=== PATIENT | male | born 1995 | race African-American/Black ===

== ENCOUNTER 2020-12-27 12:41 | Emergency (ER) | payer OTHER, SELFPAY ==
--- NOTE | 2020-12-27 12:52 | ED.URI ---
HPI - URI/Sore Throat General Chief Complaint: Upper Respiratory Infection Stated Complaint: achy headache sinus lathargic Time Seen by Provider: 12/27/20 12:52 Source: patient Mode of arrival: ambulatory Limitations: no limitations History of Present Illness HPI Narrative: 25-year-old male presents to the [facility] requesting a Covid test due to symptoms of sinus congestion, generalized fatigue and headache. Patient reports symptoms x2 to 2 days. Unsure if he has been exposed. No treatment prior to arrival Related Data Home Medications Medication Instructions Recorded Confirmed No Home Medications 08/23/19 08/23/19 Allergies Allergy/AdvReac Type Severity Reaction Status Date / Time No Known Allergies Allergy Verified 08/23/19 11:43 Review of Systems Review of Systems: Narrative: CONSTITUTIONAL: Denies fever. Reports chills and sweats. Generalized fatigue EYES: Denies visual changes, redness, or discharge. ENT: Denies congestion, sore throat, or otalgia. Reports rhinorrhea CARDIOVASCULAR: Denies chest pain, palpitations, or edema. RESPIRATORY: Denies cough or dyspnea. GASTROINTESTINAL: Denies abdominal pain, nausea, vomiting, or diarrhea. GENITOURINARY: Denies dysuria or hematuria. SKIN: Denies rash or itching. MUSCULOSKELETAL: Denies back pain, joint pain. Reports generalized muscle aches. NEUROLOGIC: Denies numbness, or weakness. Reports intermittent headache PSYCHIATRIC: Denies anxiety or depression. All other systems reviewed are negative, except as documented in HPI. PMFSH Social History Social History Gender identity (if verbalized by the patient): Male Comments At the time of my signature, I reviewed and agree with the nursing past medical, surgical, social, and family history. There is no relevant family history pertinent to the patient complaint. Exam Narrative: Exam Narrative: GENERAL: This is a well-nourished, well-developed patient, in no apparent distress. appears mildly ill HEAD: normocephalic, atraumatic. EYES: PERRL. Sclera clear/white. Vision is grossly intact. EARS: External ears normal, auditory canals clear and without drainage, TMs normal without perforation. Hearing grossly intact. NOSE: External nose normal with clear nasal discharge, nares without redness. THROAT: Mucous membranes moist, posterior pharynx clear. NECK: Neck supple, non-tender without lymphadenopathy, masses or thyromegaly. CARDIOVASCULAR: Regular rate and rhythm without murmurs, gallops, or rubs. RESPIRATORY: Clear to auscultation. Breath sounds equal bilaterally. No wheezes, rales, or rhonchi. GASTROINTESTINAL: Abdomen soft, non-tender, nondistended. SKIN: warm, intact with no suspicious lesions or rash, good texture and turgor. NEURO: awake, alert, and oriented to person, place and time. There were no obvious focal neurologic abnormalities. EXTREMITIES: No joint tenderness, effusion, or edema noted. BACK: Nontender without deformity. Course Vital Signs Vital signs: Vital Signs Temperature 98.9 F 12/27/20 12:56 Pulse Rate 64 12/27/20 12:56 Respiratory Rate 16 12/27/20 12:56 Blood Pressure 129/56 L 12/27/20 12:56 Pulse Oximetry 100 12/27/20 12:56 Temperature 98.9 F 12/27/20 12:56 Pulse Rate 64 12/27/20 12:56 Respiratory Rate 16 12/27/20 12:56 Blood Pressure 129/56 L 12/27/20 12:56 Pulse Oximetry 100 12/27/20 12:56 Reviewed MDM - URI/Sore Throat MDM Narrative Medical decision making narrative: Discharge instructions reviewed with patient, as well as provided in writing per nursing staff. The instructions also include specific and strict return/GO TO THE ER as well as f/u information. All questions have been answered, and the patient deny any further questions with discharge and discharge plan. Differential Diagnosis Differential diagnosis: Likely upper respiratory infection, sinusitis, viral infection, bronchitis, influ
[2020-12-27 12:56] VITALS: BP 129/56; PULSE 64; RESP 16; TEMP 37.2; O2SAT 100
[2020-12-28 18:33] LABS: SARS-CoV-2 RNA PCR Positive
== END 2020-12-27 13:35 | disposition home or self-care (01) ==
PROVIDERS: Emergency Provider Nurse Practitioner
DX: U07.1 COVID-19 (principal)
CPT/HCPCS: 87804; 99213; C9803; G0463; U0003; U0005